=== PATIENT | male | born 1980 | race Caucasian/White ===

== ENCOUNTER → 2018-02-19 14:09 | Outpatient (REF) | payer MEDICARE, BC, SELFPAY ==
[2018-02-19 19:30] LABS: Amphetamine/Metha Screen,Urine Negative ng/mL (<1000); Barbiturates Screen,Urine Negative ng/mL (<200); Benzodiazepines Screen,Urine Negative ng/mL (200); Cannabinoid Screen,Urine Negative ng/mL (<50); Cocaine Screen,Urine Positive ng/g (<300); Methadone Screen,Urine Negative ng/mL (<300); Opiate Screen,Urine Negative ng/mL (<300); Phencyclidine Screen,Urine Negative ng/mL (<25)
== END ==
LOC: LAB 14:09
PROVIDERS: Visit Provider Nurse Practitioner Family
DX: R52 Pain, unspecified (principal); Z79.899 Other long term (current) drug therapy
CPT/HCPCS: 80305

== ENCOUNTER → 2020-04-10 14:59 | Outpatient (CLI) | payer MEDICARE, BC, SELFPAY ==
[2020-04-10 16:25] LABS: Chloride 107 mmol/L (98-107); Sodium 138 mmol/L (136-145)
[2020-04-10 16:27] LABS: Blood Urea Nitrogen 18 mg/dl (9-20); Estimated Glomerular Filt Rate 94 ml/min (>60); GFR (African American) 114 ML/MIN (>60)
[2020-04-10 16:28] LABS: Albumin/Globulin Ratio 1.5 (1.1-1.8); Alkaline Phosphatase 67 U/L (38-126); Bilirubin,Total 0.5 mg/dl (0.2-1.3); Calcium 9.3 mg/dl (8.4-10.2); Carbon Dioxide 28 mmol/L (22.0-30.0); Globulin 2.7 g/dL (1.3-3.2); Glucose 93 mg/dl (74-100); Total Protein,Serum 6.7 g/dl (6.3-8.2)
[2020-04-10 16:29] LABS: Alanine Aminotransferase 38 U/L (12-78); Aspartate Amino Transferase 48 U/L (17-59)
[2020-04-10 16:30] LABS: Basophils # 0.1 K/mm3 (0-0.2); Basophils % 1.1 % (0.1-2.0); Eosinophils # 0.2 K/mm3 (0.0-0.4); Eosinophils % 4.8 % (0.1-12.0); Hematocrit 37.9 % (42.0-52.0); Hemoglobin 12.4 g/dL (14.1-18.0); Lymphocytes # 1.5 K/mm3 (0.7-4.5); Lymphocytes % 30.5 % (10-50); Mean Corpuscular HGB Conc 32.6 g/dL (31.8-35.4); Mean Corpuscular Hemoglobin 31.1 pg (27.0-31.2); Mean Corpuscular Volume 95.3 fl (80-94); Mean Platelet Volume 9.2 fl (7.4-10.4); Monocytes # 0.4 K/mm3 (0.1-1.0); Monocytes % 7.4 % (1.7-9.3); Neutrophils # 2.7 K/mm3 (1.8-7.8); Neutrophils % 56.2 % (37.0-80.0); Platelet Count 304 K/mm3 (142-424); Red Blood Count 3.98 M/mm3 (4.60-6.20); Red Cell Distribution Width 13.4 % (11.5-17.5); White Blood Count 4.8 K/mm3 (4.8-10.8)
[2020-04-10 16:42] LABS: T4 (Thyroxine) 11.1 ug/dl (5.53-11.0)
[2020-04-10 16:56] LABS: Thyroid Stimulating Hormone 4.13 uIU/mL (0.465-4.68)
[2020-04-12 10:04] LABS: Vitamin D 25 Hydroxy 39.4 ng/mL (30.0-100.0)
== END ==
PROVIDERS: Visit Provider Nurse Practitioner Family
DX: R53.83 Other fatigue (principal); Z00.00 Encounter for general adult medical examination without abnormal findings; S00.33XA Contusion of nose, initial encounter
CPT/HCPCS: 80053; 82652; 84436; 84443; 85025

== ENCOUNTER 2020-05-18 11:11 | Emergency (ER) | payer MEDICARE, BC, SELFPAY ==
[2020-05-18 11:12] VITALS: BP 148/96; PULSE 72; RESP 18; TEMP 36.8; O2SAT 98; BMI 26.9
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
--- NOTE | 2020-05-18 11:51 | PC.NURSE ---
at bedside examining pt's eye
[2020-05-18 12:01] VITALS: BP 142/80; PULSE 68; O2SAT 98
--- NOTE | 2020-05-18 12:01 | PC.NURSE ---
During visual acuity pt states that out of right eye he cannot even see me standing beside the eye chart. In his left eye he his vision is 20/70
--- NOTE | 2020-05-18 12:07 | PC.NURSE ---
Carlos Jones calling Dr Castañeda at this time
--- NOTE | 2020-05-18 12:11 | PC.NURSE ---
Dr Alcantara speaking with Dr Castañeda at this time
--- NOTE | 2020-05-18 12:15 | PC.NURSE ---
Dr Castañeda tells dr krueger to have pt come see him in the office.
[2020-05-18 12:21] VITALS: BP 141/87; PULSE 81; RESP 18; TEMP 36.7; O2SAT 96; O2SAT 98
== END 2020-05-18 12:25 | disposition home or self-care (01) ==
PROVIDERS: Emergency Provider Emergency Medicine; PCP Emergency Medicine
DX: H16.001 Unspecified corneal ulcer, right eye (principal); F17.210 Nicotine dependence, cigarettes, uncomplicated
CPT/HCPCS: 99282

== ENCOUNTER → 2021-01-17 14:06 | Outpatient (CLI) | payer MEDICARE, BC, SELFPAY | PROVIDERS: Visit Provider Preventive Medicine Addiction Medicine | DX: Z79.899 Other long term (current) drug therapy (principal) ==

== ENCOUNTER 2023-05-17 00:25 | Emergency (ER) | payer BC, SELFPAY ==
--- NOTE | 2023-05-17 | XR_ITS ---
PROCEDURE INFORMATION: Exam: XR Pelvis Exam date and time: 05/17/2023 12:57 AM Age: 42 years old Clinical indication: Injury or trauma; Fall TECHNIQUE: Imaging protocol: Radiologic exam of the pelvis. Views: 1 or 2 view. COMPARISON: No relevant prior studies available. FINDINGS: Bones/joints: Postsurgical changes of the right femur. Postsurgical changes of the lumbar spine. Hardware appears intact. No acute fracture or dislocation. Soft tissues: Unremarkable. IMPRESSION: No acute fracture or dislocation.
[2023-05-17 00:37] VITALS: BP 118/68; PULSE 87; RESP 16; TEMP 37.2; O2SAT 97; BMI 25.1
--- NOTE | 2023-05-17 00:45 | XR_ITS ---
PROCEDURE INFORMATION: Exam: XR Right Knee Exam date and time: 05/17/2023 12:53 AM Age: 42 years old Clinical indication: Injury or trauma; Fall; Additional info: Pain from fall x 2 days ago TECHNIQUE: Imaging protocol: Radiologic exam of the right knee. Views: 3 views. COMPARISON: No relevant prior studies available. FINDINGS: Bones/joints: Mild tricompartmental osteoarthrosis. No acute fracture or dislocation. Soft tissues: Anterior soft tissue swelling. IMPRESSION: No acute fracture or dislocation.
[2023-05-17 01:12] LABS: Chloride 104 mmol/L (98-107); Sodium 142 mmol/L (136-145)
[2023-05-17 01:13] LABS: Potassium 3.2 mmoL/L (3.5-5.1)
[2023-05-17 01:15] LABS: Alanine Aminotransferase 51 U/L (12-78); Alkaline Phosphatase 70 U/L (38-126); Aspartate Amino Transferase 85 U/L (17-59); Bilirubin,Total 0.9 mg/dl (0.2-1.3); Blood Urea Nitrogen 21 mg/dl (9-20); Creatinine Clearance Estimated 111 mL/min (50-200); Estimated Glomerular Filt Rate 82 ml/min (>60); GFR (African American) 99 ML/MIN (>60)
[2023-05-17 01:16] LABS: Albumin Level 3.8 g/dl (3.5-5.0); Albumin/Globulin Ratio 1.3 (1.1-1.8); Anion Gap 12.2 mEq/L (5-15); Calcium 8.4 mg/dl (8.4-10.2); Carbon Dioxide 29 mmol/L (22.0-30.0); Glucose 92 mg/dl (74-100); Lactic Acid 0.9 mmol/L (0.7-2.1); Total Protein,Serum 6.8 g/dl (6.3-8.2)
[2023-05-17 01:33] LABS: Procalcitonin 0.117 ng/mL (0.0-2.0)
--- NOTE | 2023-05-17 01:33 | PC.NURSE ---
PATIENT RESTING AT THIS TIME. NO COMPLAINTS OFFERED. IVF'S INFUSING. BLE ELEVATED ON BED. WAITING ON TEST RESULTS
[2023-05-17 01:49] LABS: Basophils % 0.2 % (0.1-2.0); Eosinophils # 0.2 K/mm3 (0.0-0.4); Eosinophils % 2.9 % (0.1-12.0); Hematocrit 34.8 % (42.0-52.0); Hemoglobin 10.9 g/dL (14.1-18.0); Lymphocytes # 1.7 K/mm3 (0.7-4.5); Lymphocytes % 25.2 % (10-50); Mean Corpuscular HGB Conc 31.3 g/dL (31.8-35.4); Mean Corpuscular Hemoglobin 29.5 pg (27.0-31.2); Mean Corpuscular Volume 94.1 fl (80-94); Mean Platelet Volume 7.5 fl (7.4-10.4); Monocytes # 0.4 K/mm3 (0.1-1.0); Monocytes % 5.4 % (1.7-9.3); Neutrophils # 4.4 K/mm3 (1.8-7.8); Neutrophils % 66.3 % (37.0-80.0); Platelet Count 311 K/mm3 (142-424); Red Cell Distribution Width 13.2 % (11.5-17.5); White Blood Count 6.6 K/mm3 (4.8-10.8)
[2023-05-17 02:00] VITALS: BP 96/74; PULSE 65; O2SAT 97
[2023-05-17 02:00] LABS: C-Reactive Protein 11.4 mg/L (0-4)
--- NOTE | 2023-05-17 02:02 | PC.NURSE ---
Pt unable to provide urine sample at this time.
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
[2023-05-17 02:15] VITALS: BP 106/70; PULSE 90; RESP 20; TEMP 37; O2SAT 96
[2023-05-17 02:17] LABS: Erythrocyte Sedimentation Rate 19 mm/hr (0-15)
[2023-05-17 05:09] LABS: Uric Acid 5.6 mg/dl (3.5-8.5)
== END 2023-05-17 02:25 | disposition home or self-care (01) ==
PROVIDERS: Emergency Provider Emergency Medicine; PCP Emergency Medicine
DX: S83.91XA Sprain of unspecified site of right knee, initial encounter (principal); F17.210 Nicotine dependence, cigarettes, uncomplicated; V18.0XXA Pedal cycle driver injured in noncollision transport accident in nontraffic accident, initial encounter; L03.115 Cellulitis of right lower limb; L03.116 Cellulitis of left lower limb
CPT/HCPCS: 72170; 73562; 80053; 83605; 84145; 84550; 85025; 85651; 86140; 87040; 96374; 99284; 99285; J0696

== ENCOUNTER 2023-09-29 23:46 | Emergency (ER) | payer BC, SELFPAY ==
[2023-09-29 23:52] VITALS: BP 155/85; PULSE 71; RESP 18; TEMP 36.4; O2SAT 100; BMI 25.1
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
--- NOTE | 2023-09-30 00:02 | PC.NURSE ---
in room talking with patient at this time.
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
[2023-09-30 00:30] VITALS: BP 154/78; PULSE 68; O2SAT 99
[2023-09-30 01:00] VITALS: BP 152/77; PULSE 60; O2SAT 98
--- NOTE | 2023-09-30 01:16 | CT_ITS ---
PROCEDURE INFORMATION: Exam: CT Left Upper Extremity Without Contrast, Hand Exam date and time: 09/30/2023 1:28 AM Age: 42 years old Clinical indication: Abnormal findings; Abnormal imaging study of the limbs; XR left hand; Additional info: Abn xray report TECHNIQUE: Imaging protocol: Computed tomography of the left upper extremity without contrast. Exam focused on the hand. 3D rendering (Not supervised by radiologist): MIP and/or 3D reconstructed images were created by the technologist. Radiation optimization: All CT scans at this facility use at least one of these dose optimization techniques: automated exposure control; mA and/or kV adjustment per patient size (includes targeted exams where dose is matched to clinical indication); or iterative reconstruction. REPORTING DATA: Count of CT and Cardiac NM exams in prior 12 months: This patient has received 0 known CTs and 0 known cardiac nuclear medicine studies in the 12 months prior to the current study. COMPARISON: CR XR HAND LT 2V 09/30/2023 12:03 AM FINDINGS: Bones/joints: The metacarpals and phalanges are intact. No acute fracture. The joint spaces are normal. Please see the report of CT of the wrist for description of the carpal bone abnormalities. Soft tissues: Normal. IMPRESSION: No acute fracture of the metacarpals or phalanges.
--- NOTE | 2023-09-30 01:18 | CT_ITS ---
PROCEDURE INFORMATION: Exam: CT Left Upper Extremity Without Contrast, Wrist Exam date and time: 09/30/2023 1:30 AM Age: 42 years old Clinical indication: Abnormal findings; Abnormal imaging study of the limbs; XR left wrist; Additional info: Abn xray read TECHNIQUE: Imaging protocol: Computed tomography of the left upper extremity without contrast. Exam focused on the wrist. 3D rendering (Not supervised by radiologist): MIP and/or 3D reconstructed images were created by the technologist. Radiation optimization: All CT scans at this facility use at least one of these dose optimization techniques: automated exposure control; mA and/or kV adjustment per patient size (includes targeted exams where dose is matched to clinical indication); or iterative reconstruction. REPORTING DATA: Count of CT and Cardiac NM exams in prior 12 months: This patient has received 0 known CTs and 0 known cardiac nuclear medicine studies in the 12 months prior to the current study. COMPARISON: CR XR WRIST LT 2V 09/30/2023 12:03 AM FINDINGS: Bones/joints: There is a nondisplaced transverse fractures through the mid scaphoid. Old ununited dorsal triquetral fracture. Faint transverse lucency at the base of the hook of the hamate having the appearance of an old fracture with sclerosis noted along the fracture line. Soft tissues: Normal. IMPRESSION: 1. Nondisplaced acute transverse fracture of the mid scaphoid. 2. Old ununited dorsal triquetral fracture. 3. Old fracture of the base of the hook of the hamate.
[2023-09-30 02:00] VITALS: BP 132/72
[2023-09-30 02:25] VITALS: BP 132/72; PULSE 34; RESP 16; TEMP 36.4; O2SAT 98
== END 2023-09-30 02:27 | disposition home or self-care (01) ==
PROVIDERS: Emergency Provider Emergency Medicine; PCP Emergency Medicine
DX: S62.025A Nondisplaced fracture of middle third of navicular [scaphoid] bone of left wrist, initial encounter for closed fracture (principal); V18.0XXA Pedal cycle driver injured in noncollision transport accident in nontraffic accident, initial encounter; F17.210 Nicotine dependence, cigarettes, uncomplicated
CPT/HCPCS: 73090; 73100; 73120; 73200; 99284; 99285

== ENCOUNTER 2024-02-16 18:01 | Emergency (ER) | payer BC, SELFPAY ==
[2024-02-16 18:02] VITALS: BP 110/62; PULSE 72; RESP 16; TEMP 36.7; O2SAT 97; BMI 25.1
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
--- NOTE | 2024-02-16 18:17 | HMH.EDGENADL ---
Discharge Plan Disposition Patient Disposition: Home, Self-Care Condition: Good Prescriptions Prescriptions: New naproxen 500 mg tablet 500 mg PO BID PRN (Reason: pain) Qty: 20 0RF amoxicillin-pot clavulanate 875-125 mg tablet 1 tab PO BID Qty: 20 0RF No Action buprenorphine-naloxone [Suboxone] 8-2 mg film 2 film SUBLINGUAL TID Referrals Follow up/Referrals: Alan Schultz DO [Primary Care Provider] - See instructions Activity Restrictions/Add. Instructions Additional Instructions/Restrictions: You were evaluated in the emergency department today. Please keep your wounds clean and dry. Do not submerge under any water. Do not scrub them. It is okay for water to run over them. Pat gently to dry. 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 Take the anti-inflammatory prescribed to you as needed for pain. Follow-up closely with your primary care provider for wound recheck. Return to the emergency department for new or worsening symptoms, such as significant redness, warmth, pus draining from the wound, or other concerns. The sutures are absorbable and will go away on their own over the next 7 to 10 days. Clinical Impressions Clinical Impression: Laceration of multiple sites of face, Dog bite of face Instructions Patient Instructions: DI for Laceration Repair, DI for Animal Bites Discharge ED Provider: Madison Franco General Adult HPI General Chief complaint: Animal Bite Stated complaint: dog bite 02/15, facial lac Time Seen by Provider: 02/16/24 18:10 History of Present Illness HPI narrative: This patient is a 43-year-old male with history of opioid dependence on Suboxone presenting to the emergency department for evaluation with concern for a dog bite to the face. Patient reports that his pitbull at home bit him in the face just prior to arrival. He notes that the dog is up-to-date on vaccinations, including rabies. Patient reports that his last tetanus shot was within the last 4 years. He was well prior to this. He has a laceration to the left lower jaw, laceration to his left upper lip, and a laceration to his right submadibular region. He denies any trismus, dental injury, jaw malocclusion, difficulty swallowing, shortness of breath, or other concerns. Related Data Home Medications Medication Instructions Recorded Confirmed buprenorphine 8 mg-naloxone 2 mg 2 film sublingual TID opoid 02/19/18 09/30/23 sublingual film (Suboxone) dependence Previous Rx's Medication Instructions Recorded amoxicillin 875 mg-potassium 1 tab PO BID #20 tabs 02/16/24 clavulanate 125 mg tablet naproxen 500 mg tablet 500 mg PO BID PRN pain #20 tabs 02/16/24 Allergies Allergy/AdvReac Type Severity Reaction Status Date / Time No Known Allergies Allergy Verified 04/10/20 10:29 [facility] Disclaimer: The information contained in this section may have been updated after the patient was seen, as this information can be updated by other users. Social History Smoking Status: Current every day smoker tobacco type: cigarettes packs per day: 1 alcohol intake: never substance use type: opiates current occupational status: employed Travel in the last 8 weeks: None household members: significant other housing: house ROS Obtained: Yes All systems reviewed & no additional complaints except as documented Physical Exam General General appearance: alert and in no apparent distress Head Head exam: normocephalic Expanded Head Exam Head exam physical: Present laceration Head image: 1. 4 cm curvilinear laceration to the subcutaneous fat 2. 1 cm laceration through the jon border Comment: Patient also has superficial 6 cm laceration to the R submandibular region. No significant soft tissue swelling at this time. No neck hematoma, bruit, or signs of vascular injury on clinical exam. Eye Eye exam: Present normal appearance, PERRL and EOMI ENT ENT exam: Present normal exam, normal oropharynx, mucous membranes moist and normal external ear exam Neck Neck exam: Present full ROM and trachea midline; Absent tenderness Chest Chest inspection: Present normal inspection and symmetric chest wall rise; Absent tenderness Respiratory Respiratory exam: Present normal lung sounds bilaterally; Absent respiratory distress, wheezes, stridor or accessory muscle use Cardiovascular Cardiovascular exam: Present regular rate and normal rhythm Abdominal Exam Abdominal exam: Present soft; Absent distention, tenderness or guarding Extremities Exam Extremities exam: Present normal inspection, full ROM and normal capillary refill; Absent tenderness or edema Back Exam Back exam: Present normal inspection and full ROM; Absent tenderness Neurological Exam Neurological exam: Present alert, oriented X3, CN II-XII intact and normal gait; Absent motor sensory deficit Psychiatric Psychiatric exam: Present normal affect and normal mood Skin Skin exam: Present warm and dry Medical Decision Making Medical Records Medical records reviewed: Yes I reviewed the patient's medical records. Nickolas Inquiry Pt receiving controlled substance: No Vital Signs: 02/16/24 18:02 02/16/24 21:31 Temperature 98.0 F 97.9 F Temperature Source Axillary Pulse Rate 55 L Pulse Rate [Right] 72 Respiratory Rate 16 16 Blood Pressure 145/81 H Blood Pressure [Right Arm] 110/62 Blood Pressure Mean [Right Arm] 78 Blood Pressure Source [Right Arm] Automatic Cuff 02 Sat by Pulse Oximetry 97 Oxygen Delivery Method Room Air Lab Data Lab results reviewed: Yes I reviewed the patient's lab results. Lab Results 02/16/24 18:34: WBC 5.3, RBC 4.03 L, Hgb 12.2 L, Hct 38.3 L, MCV 95.1 H, MCH 30.3, MCHC 31.9, RDW 13.9, Plt Count 330, MPV 7.1 L, Neut % (Auto) 52.8, Lymph % (Auto) 34.1, Tillman % (Auto) 5.4, Eos % (Auto) 6.8, Baso % (Auto) 0.9, Neut # (Auto) 2.8, Lymph # (Auto) 1.8, Tillman # (Auto) 0.3, Eos # (Auto) 0.4, Baso # (Auto) 0.1, Sodium 140, Potassium 3.8, Chloride 105, Carbon Dioxide 31 H, Anion Gap 7.8, BUN 24 H, Creatinine 1.10, Estimated Creat Clear 100, Estimated GFR 73, Est GFR ( Amer) 88, Glucose 102 H, Calcium 8.9 02/16/24 18:34 02/16/24 18:34 Orders (Tests/Meds): ED MEDICATIONS Discontinued Medications Generic Name Dose Route Start Last Admin Trade Name Freq PRN Reason Stop Dose Admin Acetaminophen 1,000 mg 02/16/24 18:16 02/16/24 19:10 Acetaminophen 500mg Tab PO 02/16/24 18:17 1,000 mg ONCE ONE Administration Amoxicillin/Clavulanate Potassium 1 each 02/16/24 18:11 02/16/24 19:11 Amoxicillin/Clavulanate Potassium 875/125mg Tablet PO 02/16/24 18:12 1 each ONCE ONE Administration Iopamidol 100 ml 02/16/24 18:53 02/16/24 18:56 Iopamidol-370 (76%);100ml Bottle IV 02/16/24 18:54 100 ml ONCE ONE Administration Ketorolac Tromethamine 15 mg 02/16/24 18:16 02/16/24 19:11 Ketorolac 30mg/Ml Vial IV 02/16/24 18:17 15 mg ONCE ONE Administration Lidocaine HCl 20 ml 02/16/24 19:55 02/16/24 20:41 Lidocaine 1% 20ml Mdv IJ 02/16/24 19:56 20 ml ONCE ONE Administration Sodium Chloride 50 ml 02/16/24 18:53 02/16/24 18:56 0.9 % Sodium Chloride 50 Ml Vial IV 02/16/24 18:54 50 ml ONCE ONE Administration Sodium Chloride 10 ml 02/16/24 18:53 02/16/24 18:56 Sodium Chloride 0.9% 10ml Syr (Rad Only) IV 02/16/24 18:54 10 ml ONCE ONE Administration ORDERS Category Date Time Status CT angio neck Stat Cat Scan 02/16/24 18:[address] facial bones w con Stat Cat Scan 02/16/24 18:16 Completed BMP [Basic Metabolic Panel] Stat Lab 02/16/24 18:34 Completed Complete Blood Count Auto Diff Stat Lab 02/16/24 18:34 Completed Medical Decision Narrative: In summary, this patient is a 43-year-old male presenting to the Emergency Department for evaluation of dog bite to the face. Differential diagnoses considered include but are not limited to laceration, abrasion, foreign body, fracture, neurovascular injury. Ruling out the most morbid conditions drove assessment. On exam, the patient is well-appearing with no signs suggestive of neurovascular injury. He has no significant soft tissue swelling at this time, but given the area of the wounds and the fact that the dog was a very large dog, will obtain a CT scan of the face with IV contrast as well as CT angiogram of the neck. Basic labs were obtained prior to CT scan. Patient is already up-to-date on tetanus, and dog is vaccinated against rabies. Patient was given oral Augmentin as well as IV Toradol and oral Tylenol for symptomatic improvement. I independently interpreted CT scans prior to the radiologist read and noted venous vascular injury or significant bony injury. Please see their read for final interpretation. Labs were obtained that demonstrated no acutely concerning abnormalities. On multiple subsequent reassessments, the patient is resting comfortably with no significant bleeding, no expanding hematoma, and no significant soft tissue swelling or deformity. Given this, I feel that he is appropriate for laceration repair and discharge home. Risks versus benefit of laceration repair were given, including increased risk of infection. Patient wants to proceed with laceration repair here. His lacerations to his upper lip as well as his left lower face were repaired. His right submandibular wound is very very superficial, so I do not feel that closure is indicated. Patient tolerated repair well. Please see procedure note for further documentation. At this time, feel patient is appropriate for discharge home with prescription for Augmentin, naproxen, instructions for supportive management, instructions for close patient follow-up. Patient was discharged after all questions were answered. Procedures Risk/Benefits of Procedure(s) Were Explained: Yes Laceration Laceration 1: Site: face Side (If applicable): left Size (cm): 4 Description: other (curvilinear) Depth: simple, single layer Local Anesthetic: lidocaine 1% Amount of anesthesia used (mL): 5 Pre-repair: wound explored, irrigated extensively (betadine and saline) and deep structures intact Skin layer closed with: other (fast absorbing gut) Size (cm): 5-0 Number of sutures: 5 Technique: simple, interrupted Laceration 2: Site: face Side (If applicable): left Size (cm): 1 Description: linear Depth: simple, single layer Local Anesthetic: lidocaine 1% Amount of anesthesia used (mL): 2 Pre-repair: wound explored, irrigated extensively and deep structures intact Skin layer closed with: other (fast absorbing gut) Size (cm): 5-0 Number of sutures: 3 Technique: simple, interrupted Critical Care Critical Care Time Critical Care Time: No
--- NOTE | 2024-02-16 18:25 | CT_ITS ---
PROCEDURE INFORMATION: Exam: CTA Neck With Contrast Exam date and time: 02/16/2024 6:53 PM Age: 43 years old Clinical indication: Injury or trauma; Other: Dog bite; Laceration; Not specified; Head; Additional info: Dog bite to face involving R proximal neck/submand TECHNIQUE: Imaging protocol: Computed tomographic angiography of the neck with contrast. Exam focused on the cervical segments of the vasculature. 3D rendering (Not supervised by radiologist): MIP and/or 3D reconstructed images were created by the technologist. Radiation optimization: All CT scans at this facility use at least one of these dose optimization techniques: automated exposure control; mA and/or kV adjustment per patient size (includes targeted exams where dose is matched to clinical indication); or iterative reconstruction. Contrast material: ISOVUE; Contrast volume: 100 ml; Contrast route: INTRAVENOUS (IV); COMPARISON: HEADWO CT head/brain wo con 12/05/2018 2:48 PM FINDINGS: Right common carotid artery: Normal. No stenosis. No dissection or occlusion. Right internal carotid artery: Normal. No stenosis. No dissection or occlusion. Right external carotid artery: Normal. No stenosis. No dissection or occlusion. Left common carotid artery: Normal. No stenosis. No dissection or occlusion. Left internal carotid artery: No acute findings. Mild calcific plaque in the cavernous segment. No stenosis. No dissection or occlusion. Left external carotid artery: Normal. No stenosis. No dissection or occlusion. Right vertebral artery: Normal. No stenosis. No dissection or occlusion. Left vertebral artery: Normal. No stenosis. No dissection or occlusion. Brachiocephalic artery: The brachiocephalic artery is unremarkable. Right subclavian artery: The right subclavian artery is unremarkable. Left subclavian artery: The left subclavian artery is unremarkable. Aorta: The visualized aortic arch is unremarkable. Thyroid: The thyroid gland is unremarkable. Soft tissues: Soft tissue laceration in the left buccal region with local swelling but no gross foreign body. Mild subcutaneous swelling in the right anterolateral neck subcutaneous fat with no hematoma or foreign body. Bones/joints: No acute osseous abnormalities are identified. Lungs: The visualized pulmonary apices are clear. IMPRESSION: 1. No vascular injuries. 2. No evidence of arterial stenosis, occlusion, dissection, or aneurysm/pseudoaneurysm. 3. Soft tissue swelling/laceration in the left buccal region, and mild subcutaneous soft tissue swelling in the right anterolateral neck. No hematoma or foreign body. REFERENCES: NASCET CRITERIA. The degree of stenosis in the cervical segment of the internal carotid artery is based on NASCET criteria. Normal is no stenosis. Mild is less than 50% stenosis. Moderate is 50-69% stenosis. Severe is 70% to 99% stenosis. Total occlusion is no detectable patent lumen.
[2024-02-16 18:47] LABS: Basophils # 0.1 K/mm3 (0-0.2); Basophils % 0.9 % (0.1-2.0); Eosinophils # 0.4 K/mm3 (0.0-0.4); Eosinophils % 6.8 % (0.1-12.0); Hematocrit 38.3 % (42.0-52.0); Hemoglobin 12.2 g/dL (14.1-18.0); Lymphocytes # 1.8 K/mm3 (0.7-4.5); Lymphocytes % 34.1 % (10-50); Mean Corpuscular HGB Conc 31.9 g/dL (31.8-35.4); Mean Corpuscular Hemoglobin 30.3 pg (27.0-31.2); Mean Corpuscular Volume 95.1 fl (80-94); Mean Platelet Volume 7.1 fl (7.4-10.4); Monocytes # 0.3 K/mm3 (0.1-1.0); Monocytes % 5.4 % (1.7-9.3); Neutrophils # 2.8 K/mm3 (1.8-7.8); Neutrophils % 52.8 % (37.0-80.0); Platelet Count 330 K/mm3 (142-424); Red Blood Count 4.03 M/mm3 (4.60-6.20); Red Cell Distribution Width 13.9 % (11.5-17.5); White Blood Count 5.3 K/mm3 (4.8-10.8)
[2024-02-16 18:50] LABS: Chloride 105 mmol/L (98-107); Potassium 3.8 mmoL/L (3.5-5.1); Sodium 140 mmol/L (136-145)
[2024-02-16 18:52] LABS: Blood Urea Nitrogen 24 mg/dl (9-20); Creatinine Clearance Estimated 100 mL/min (50-200); Estimated Glomerular Filt Rate 73 ml/min (>60); GFR (African American) 88 ML/MIN (>60)
[2024-02-16 18:53] LABS: Anion Gap 7.8 mEq/L (5-15); Calcium 8.9 mg/dl (8.4-10.2); Carbon Dioxide 31 mmol/L (22.0-30.0); Glucose 102 mg/dl (74-100)
[2024-02-16] MEDS: 0.9 % SODIUM CHLORIDE 50 ML VIAL IV (18:56)
[2024-02-16] MEDS: SODIUM CHLORIDE 0.9% 10ML SYR (RAD ONLY) 10 ML IV (18:56)
[2024-02-16] MEDS: IOPAMIDOL-370 (76%);100ML BOTTLE 100 ML IV (18:56)
[2024-02-16] MEDS: ACETAMINOPHEN 500MG TAB 1000 MG PO (19:10)
[2024-02-16] MEDS: KETOROLAC 30MG/ML VIAL 15 MG IV (19:11)
[2024-02-16] MEDS: AMOXICILLIN/CLAVULANATE POTASSIUM 875/125MG TABLET 1 EACH PO (19:11)
--- NOTE | 2024-02-16 19:12 | PC.NURSE ---
pt back from ct
[2024-02-16] MEDS: LIDOCAINE 1% 20ML MDV 20 ML IJ (20:41)
--- NOTE | 2024-02-16 21:23 | PC.NURSE ---
patients ride is on the way
[2024-02-16 21:31] VITALS: BP 145/81; PULSE 55; RESP 16; TEMP 36.6
== END 2024-02-16 21:30 | disposition home or self-care (01) ==
PROVIDERS: Emergency Provider Emergency Medicine; PCP Internal Medicine
DX: S01.81XA Laceration without foreign body of other part of head, initial encounter (principal); S01.511A Laceration without foreign body of lip, initial encounter; F17.210 Nicotine dependence, cigarettes, uncomplicated; W54.0XXA Bitten by dog, initial encounter
CPT/HCPCS: 12013; 70487; 70498; 80048; 85025; 96374; 99285; Q9967

== ENCOUNTER 2024-07-14 16:30 | Emergency (ER) | payer BC, SELFPAY ==
[2024-07-14 16:48] VITALS: BP 151/92; PULSE 86; RESP 20; TEMP 36.6; O2SAT 97; BMI 27.4
--- NOTE | 2024-07-14 16:48 | EXP.UTC ---
Discharge Plan Disposition Patient Disposition: Home, Self-Care Condition: Good Prescriptions Prescriptions: New doxycycline hyclate 100 mg capsule 100 mg PO Q12 10 Days Qty: 20 0RF methylprednisolone 4 mg Tablets,Dose Pack 4 mg PO DIRECTED 6 Days Qty: 21 0RF Rx Instructions: Take 1 pack as directed for 6 days clotrimazole 1 % cream 1 applic topical BID 28 Days Qty: 30 0RF No Action buprenorphine-naloxone [Suboxone] 8-2 mg film 2 film SUBLINGUAL TID naproxen 500 mg tablet 500 mg PO BID PRN (Reason: pain) Qty: 20 0RF amoxicillin-pot clavulanate 875-125 mg tablet 1 tab PO BID Qty: 20 0RF Referrals Follow up/Referrals: Marquita Cohn MD [Referring] - See instructions Provider,MD Ezio [Primary Care Provider] - See instructions Activity Restrictions/Add. Instructions Additional Instructions/Restrictions: Take the oral steroids (medrol dose pack) and the antibiotics (doxycycline) as directed. Apply the clotrimazole (antifungal cream) to your feet as directed. Take the medications as directed. Follow up with your regular doctor. Follow up with the pole framer (Dr. Cohn) as directed. I put in the referral but you will need to call her office and schedule an appointment. GO TO THE ER FOR ANY WORSENING SYMPTOMS Clinical Impressions Clinical Impression: Cellulitis, Psoriasis, Knee pain, right, Tinea pedis Instructions Patient Instructions: Cellulitis, DI for Athlete's Foot, DI for Psoriasis, Doxycycline Print Language Print Language: Macedonian Discharge ED Provider: Darnell De La Vega [place] HPI General Stated complaint: rash, abd pain Time Seen by Provider: 07/14/24 16:48 Related Data Home Medications ?Medication ?Instructions ?Recorded ?Confirmed buprenorphine 8 mg-naloxone 2 mg 2 film sublingual TID opoid 02/19/18 09/30/23 sublingual film (Suboxone) dependence Previous Rx's ?Medication ?Instructions ?Recorded amoxicillin 875 mg-potassium 1 tab PO BID #20 tabs 02/16/24 clavulanate 125 mg tablet naproxen 500 mg tablet 500 mg PO BID PRN pain #20 tabs 02/16/24 clotrimazole 1 % topical cream 1 applic topical BID 4 weeks #30 07/14/24 grams doxycycline hyclate 100 mg capsule 100 mg PO Q12 10 days #20 caps 07/14/24 methylprednisolone 4 mg tablets in 4 mg PO DIRECTED 6 days #21 tabs 07/14/24 a dose pack Allergies Allergy/AdvReac Type Severity Reaction Status Date / Time No Known Allergies Allergy Verified 04/10/20 10:29 [facility] Disclaimer: The information contained in this section may have been updated after the patient was seen, as this information can be updated by other users. Social History Smoking Status: Current every day smoker tobacco type: cigarettes packs per day: 1 alcohol intake: never substance use type: opiates current occupational status: employed Travel in the last 8 weeks: None household members: significant other housing: house ROS Obtained: Yes All systems reviewed & no additional complaints except as documented Constitutional Constitutional: Denies chills and Denies fever(s) Eyes Eyes: Denies eye discharge ENT Ears, Nose, Mouth, and Throat: Denies dizziness, Denies otalgia and Denies sore throat Cardiovascular Cardiovascular: Denies chest pain Respiratory Respiratory: Denies shortness of breath, Denies chest congestion, Denies cough, Denies stridor and Denies wheezing Gastrointestinal Gastrointestingal: Denies nausea or vomiting Musculoskeletal Musculoskeletal: Reports system reviewed and no additional complaints, except as documented and Denies arthralgias Integumentary/Breasts Skin/Breast: Reports as per HPI and Reports rash Neurologic Neurologic: Denies dizziness and Denies paresthesias Allergic/Immunologic Allergic/Immunologic: Denies wheezing Physical Exam General General appearance: alert and in no apparent distress Head
[2024-07-14 17:43] VITALS: BP 151/92; PULSE 86; RESP 20; TEMP 36.6; O2SAT 97
== END 2024-07-14 17:44 | disposition home or self-care (01) ==
PROVIDERS: Emergency Provider Nurse Practitioner Family
DX: L40.9 Psoriasis, unspecified (principal); M25.561 Pain in right knee; B35.3 Tinea pedis
CPT/HCPCS: 99204; 99212; G0463